=== PATIENT | male | born 1990 | race Caucasian/White ===

== ENCOUNTER 2017-02-13 18:56 | Emergency (ER) | payer MEDICAID ==
[2017-02-13] MEDS ORDERED: CEPHALEXIN 500 MG CAP PO ONE (20:15)
--- NOTE | 2017-02-13 20:19 | EDPHY ---
H & P Smoking Status: Current every day smoker Time Seen by Provider: 02/13/17 20:13 HPI/ROS: CHIEF COMPLAINT: Right index finger laceration HISTORY OF PRESENT ILLNESS: 26-year-old homeless male with up-to-date tetanus sustained accidental laceration to his right index finger middle phalanx lateral aspect last evening, slightly greater than 24 hours ago, comes to the ER concerned that it may become infected. He is complaining of pain to palpation is concerned that he may have impacted the bone. No paresthesia or sensory [place] PHYSICAL EXAM (Prior to examination, patient consented to physical exam, hands were washed and my usual and customary physical exam procedures followed) 1) GENERAL: Well-developed, well-nourished, alert and oriented. Appears to be in no acute distress. 2) HEAD: Normocephalic 3) HEENT: sclera anicteric 4) LUNGS: Breathing comfortably. 5) SKIN: laceration 6) MUSCULOSKELETAL: right index finger middle phalanx lateral aspect 1.5 cm laceration. No signs of infection. Negative kanavel sign. Wound is already granulating. FDP FDS function intact 7) NEUROLOGIC: Full sensation two-point discrimination intact distally (Fer,Chata Xenia) Constitutional: Initial Vital Signs Temperature (C) 37.5 C 02/13/17 19:11 Heart Rate 90 02/13/17 19:11 Respiratory Rate 16 02/13/17 19:11 Blood Pressure 118/64 02/13/17 19:11 O2 Sat (%) 91 L 02/13/17 19:11 O2 Delivery Mode Room Air Allergies/Adverse Reactions: acetaminophen Allergy (Verified 02/13/17 19:11) Home Medications: Medication Instructions Recorded Cephalexin [Keflex] 500 mg PO TID 3 Days cap 02/13/17 Ibuprofen [Motrin (*)] 600 mg PO Q6 #15 tab 02/13/17 MDM/Departure - MDM Imaging: I viewed and interpreted images myself - [facility] Medications Given: Discontinued Medications Cephalexin (Keflex 500 Mg Prepack#4) 1 btl TAKEHOME EDNOW ONE PRN Reason: Protocol Stop: 02/13/17 20:22 Last Admin: 02/13/17 20:41 Dose: 1 btl Cephalexin HCl (Keflex) 500 mg PO EDNOW ONE PRN Reason: Protocol Stop: 02/13/17 20:16 Last Admin: 02/13/17 20:40 Dose: 500 mg Ibuprofen (Motrin) 600 mg PO EDNOW ONE Stop: 02/13/17 20:25 Last Admin: 02/13/17 20:40 Dose: 600 mg ED Course/Re-evaluation: Patient has a laceration to his finger which is slightly greater than 24 hours old. This will be allowed to heal via secondary intention. However, his wound has been cleansed. Given his homeless living situation, although he currently has no signs of cellulitis or infectious tenosynovitis, I think it is appropriate to discharge the patient on prophylactic antibiotics, started on Keflex, given usual and customary wound precautions and instructions. (Chata Monroe) I did not see this patient while he was in the emergency department. However his care was discussed with the PA while the patient was in the department. I agree with treatment plan and management (Papito Brower) - Depart Disposition: Home, Routine, Self-Care Clinical Impression: Laceration of right index finger Condition: Good Instructions: Cephalexin (By mouth), Laceration (ED) Additional Instructions: Return to the ER if you develop redness, swelling, discharge, warmth to the wound, red streaks going up your arm , or any other symptoms that concern you. Prescriptions: Cephalexin [Keflex] 500 mg PO TID 3 Days cap Ibuprofen [Motrin (*)] 600 mg PO Q6 #15 tab Referrals: [facility],. [Clinic] - 1-2 days without fail
[2017-02-13] MEDS ORDERED: CEPHALEXIN 500MG PREPACK#4 BTL TAKEHOME ONE (20:21)
[2017-02-13] MEDS ORDERED: IBUPROFEN 600 MG TAB PO ONE (20:24)
[2017-02-13] MEDS ORDERED: IBUPROFEN 200 MG TAB PO ONE (20:49)
[2017-02-13 21:23] VITALS: BP 109/73; PULSE 83; RESP 18; TEMP 97.9; O2SAT 94
== END 2017-02-13 21:19 | disposition home or self-care (01) ==
DX: S61.210A Laceration without foreign body of right index finger without damage to nail, initial encounter (principal); F17.200 Nicotine dependence, unspecified, uncomplicated; X58.XXXA Exposure to other specified factors, initial encounter